=== PATIENT | female | born 1995 | race Caucasian/White ===

== ENCOUNTER 2018-03-17 08:00 | Outpatient (CLI) | payer MEDICAID | END 2018-03-17 23:59 | LOC: LAB.R 08:00 | PROVIDERS: ATTEND Obstetrics & Gynecology | DX: Z30.40 Encounter for surveillance of contraceptives, unspecified (principal) | CPT/HCPCS: 87491; 87591 ==

== ENCOUNTER 2019-01-22 15:19 | Outpatient (CLI) | payer MEDICAID ==
[2019-01-22 17:48] LABS: BASOPHILS # (AUTO) 0.1 10^3/uL (0.0-0.1); BASOPHILS % (AUTO) 0.8 %; EOSINOPHILS # (AUTO) 0.5 10^3/uL (0.0-0.7); EOSINOPHILS % (AUTO) 6.9 %; LYMPHOCYTES # (AUTO) 2.8 10^3/uL (1.5-3.5); LYMPHOCYTES % (AUTO) 37.9 %; MEAN CORPUSCULAR HEMOGLOBIN 30.8 pg (27.0-31.0); MEAN CORPUSCULAR HGB CONC 33.1 g/dL (32.0-36.0); MEAN CORPUSCULAR VOLUME 93.1 fL (81.0-99.0); MEAN PLATELET VOLUME 10.5 fL (7.9-10.8); MONOCYTES # (AUTO) 0.5 10^3/uL (0.0-1.0); MONOCYTES % (AUTO) 6.7 %; NEUTROPHILS # (AUTO) 3.5 10^3/uL (1.5-6.6); NEUTROPHILS % (AUTO) 47.4 %; PLT - PLATELET COUNT 217 10^3/uL (130-450); RED BLOOD COUNT 4.22 10^6/uL (4.20-5.40); WHITE BLOOD COUNT 7.4 x10^3/uL (4.8-10.8)
[2019-01-22 18:00] LABS: ALBUMIN 4.3 g/dL (3.2-5.5); ALBUMIN/GLOBULIN RATIO 1.4 (1.0-2.2); BILIRUBIN,TOTAL 0.7 mg/dL (0.2-1.0); CALCIUM 8.9 mg/dL (8.5-10.3); CREATININE 0.7 mg/dL (0.4-1.0); TOTAL PROTEIN 7.3 g/dL (6.7-8.2)
== END 2019-01-22 15:20 | disposition home or self-care (01) ==
LOC: LAB.S 15:19
PROVIDERS: ATTEND Registered Nurse
DX: Z13.228 Encounter for screening for other metabolic disorders (principal); Z13.29 Encounter for screening for other suspected endocrine disorder; Z13.0 Encounter for screening for diseases of the blood and blood-forming organs and certain disorders involving the immune mechanism
CPT/HCPCS: 36415; 80053; 84443; 85025

== ENCOUNTER 2020-10-16 12:38 | Outpatient (CLI) | payer BC, MEDICAID ==
--- NOTE | 2020-10-16 13:34 | XRAY Report ---
PROCEDURE: Ankle 3 View LT INDICATIONS: LEFT ANKLE CONTUSION TECHNIQUE: 3 views of the ankle were acquired. COMPARISON: None FINDINGS: Bones: Mild bony offset of the medial malleolus with traversing linear lucency. Ankle mortise is norm ally aligned. No suspicious bony lesions. Soft tissues: No tibiotalar joint effusion. Achilles tendon appears normal. IMPRESSION: Medial malleolus fracture. Reviewed by: Sosa Chavarria MD on 10/16/2020 1:32 PM PDT Approved by: Sosa Chavarria MD on 10/16/2020 1:32 PM PDT Station ID: [id number]
--- NOTE | 2020-10-16 14:40 | XRAY Report ---
PROCEDURE: Foot 3 View LT INDICATIONS: LEFT FOOT PAIN TECHNIQUE: 3 views of the foot were acquired. COMPARISON: None FINDINGS: Bones: No fractures or dislocations. No suspicious bony lesions. Soft tissues: No tibiotalar joint effusion. Achilles tendon appears normal. IMPRESSION: No acute fracture. No osseous lesion. If symptoms and/or clinical suspicion for pathology continue, f urther assessment with repeat plain films, or advanced imaging (e.g., CT, MRI, or bone scan) is recom mended for further assessment. Reviewed by: Sosa Chavarria MD on 10/16/2020 2:38 PM PDT Approved by: Sosa Chavarria MD on 10/16/2020 2:38 PM PDT Station ID: [id number]
== END 2020-10-16 23:59 | disposition home or self-care (01) ==
LOC: DI.S 12:38
PROVIDERS: ATTEND Physician Assistant Medical
DX: M79.672 Pain in left foot (principal); S82.52XA Displaced fracture of medial malleolus of left tibia, initial encounter for closed fracture

== ENCOUNTER 2020-11-22 12:39 | Outpatient (CLI) | payer MEDICAID | END 2020-11-22 12:40 | disposition EMS.NT | LOC: EMS 12:39 | DX: F41.9 Anxiety disorder, unspecified (principal); R06.4 Hyperventilation ==

== ENCOUNTER 2020-12-01 09:30 | Outpatient (CLI) | payer MEDICAID ==
--- NOTE | 2020-12-01 17:23 | XRAY Report ---
PROCEDURE: Ankle 3 View LT INDICATIONS: NONDISPLACED FX OF L MEDIAL MALLEOLUS TECHNIQUE: 3 views of the ankle were acquired. COMPARISON: Prior foot and ankle plain films 10/16/2020 reviewed. FINDINGS: Bones: No fractures or dislocations. Ankle mortise is normally aligned. No suspicious bony lesions . Soft tissues: No tibiotalar joint effusion. Achilles tendon appears normal. IMPRESSION: No trauma found. No subluxation identified. Reviewed by: Ed Singleton MD on 12/01/2020 5:21 PM PDT Approved by: Ed Singleton MD on 12/01/2020 5:21 PM PDT Station ID: [id number]
== END 2020-12-01 23:59 | disposition home or self-care (01) ==
LOC: DI.N 09:30
PROVIDERS: ATTEND Orthopaedic Surgery
DX: S82.55XA Nondisplaced fracture of medial malleolus of left tibia, initial encounter for closed fracture (principal)

== ENCOUNTER 2021-01-01 10:40 | Outpatient (CLI) | payer MEDICAID ==
--- NOTE | 2021-01-01 15:11 | XRAY Report ---
PROCEDURE: Ankle 3 View LT INDICATIONS: NONDISPLACED FX OF MEDIAL MALLEOLUS OF LEFT TIBIA TECHNIQUE: 3 views of the ankle were acquired. COMPARISON: Left ankle x-ray 12/01/2020. FINDINGS: Bones: There is continued interval healing of medial malleoli or fracture with stable alignment. Ankl e mortise is normally aligned. No suspicious bony lesions. Soft tissues: No tibiotalar joint effusion. Achilles tendon appears normal. IMPRESSION: Stable left medial malleoli or fracture alignment with continued interval healing. No ne w fracture identified. Reviewed by: Yolis Chappell MD on 01/01/2021 3:10 PM PDT Approved by: Yolis Chappell MD on 01/01/2021 3:10 PM PDT Station ID: [id number]
== END 2021-01-01 23:59 | disposition home or self-care (01) ==
LOC: DI.N 10:40
PROVIDERS: ATTEND Physician Assistant
DX: S82.55XD Nondisplaced fracture of medial malleolus of left tibia, subsequent encounter for closed fracture with routine healing (principal)